=== PATIENT | female | born 1950 | race Caucasian/White ===

== ENCOUNTER 2016-07-22 18:56 | Emergency (ER) | payer MEDICARE ==
[2016-07-22 20:04] VITALS: TEMP 98.3
--- NOTE | 2016-07-22 20:57 | DIRPT ---
CLINICAL DATA: Acute lower back pain after fall today. EXAM: LUMBAR SPINE - COMPLETE 4+ VIEW COMPARISON: None. FINDINGS: Mild dextroscoliosis of lumbar spine is noted. Disc spaces and posterior facet joints appear intact. No fracture or significant spondylolisthesis is noted. IMPRESSION: No significant abnormality seen in the lumbar spine. Electronically Signed By: Christos Law Jr, M.D. On: 07/22/2016 20:54
--- NOTE | 2016-07-22 20:58 | DIRPT ---
CLINICAL DATA: 66-year-old female with history of trauma from a fall on a piece of ice, with injury to the right wrist complaining of right wrist pain. EXAM: RIGHT WRIST - COMPLETE 3+ VIEW COMPARISON: No priors. FINDINGS: Four views of the right wrist demonstrate a very subtle lucency through the metaphyseal region on the oblique and scaphoid views, suggesting a nondisplaced fracture in this region. On the lateral projection, there is also a small displaced cortical fragment posteriorly to the distal radius. Distal ulna appears intact. Carpals appear intact, however, there is widening of the scapholunate interval. IMPRESSION: 1. Nondisplaced fracture through the distal radial metaphysis, with subtle nondisplaced avulsion fracture of the dorsal aspect of the distal radius. 2. Widening of the scapholunate interval suggesting scapholunate ligament injury. Whether or not this is acute or chronic is uncertain on today's examination, as there are no prior studies to compare with. Electronically Signed By: Dio Travis M.D. On: 07/22/2016 20:55
--- NOTE | 2016-07-22 20:59 | DIRPT ---
CLINICAL DATA: Slip and fall on ice, landing on low back and sacrum, now with sacrococcygeal back pain. EXAM: SACRUM AND COCCYX - 2+ VIEW COMPARISON: None. FINDINGS: There is no evidence of fracture or other focal bone lesions. The sacral ala are maintained. Sacroiliac joints appear normal. IMPRESSION: Negative radiographs of the sacrum and coccyx. Electronically Signed By: Florencia Powell M.D. On: 07/22/2016 20:56
[2016-07-22 21:38] VITALS: BP 151/71; PULSE 77; BMI 24.0
--- NOTE | 2016-07-22 21:46 | EDPRACDOC ---
- General Chief Complaint: Fall Stated Complaint: FALL Time Seen by Provider: 07/22/16 21:39 Information Source: Patient - History of Present Illness Onset: 1300 HPI: PT STATES SHE SLIPPED ON THE ICE TODAY, FELL BACKWARDS, COMPLAINS OF PAIN IN LOWER BACK, TAILBONE AND RIGHT WRIST, NO LOC, NO NECK PAIN, TOOK ALEVE WITH SOME RELIEF. Pain Severity: Reports: Mild Injuries/Pain Location: Reports: upper extremity, back Reason for Fall: Reports: slipped Loss of Consciousness: no loss of consciousness Modifying Factors: improves with: movement Associated Symptoms (Fall): Denies: abdominal pain, chest pain, confusion, dizziness, headache, lightheadedness, muscle spasms, nausea/vomiting, neck pain , ringing in ears, seizures, shortness of breath, slurred speech, trouble walking, vision changes Allergies/Adverse Reactions: Allergies Penicillins Allergy (Verified 07/22/16 20:04) Edema-Oral/Lip pneumococcal vaccine Allergy (Verified 07/22/16 20:04) Rash-Localized Home Medications: Ambulatory Orders Cyclobenzaprine HCl [Flexeril] 10 mg PO TID PRN #20 tablet 01/25/15 Hydrocodone Bit/Acetaminophen [Hydrocodon-Acetaminophen 5-325] 1 tab PO Q6 PRN # 20 tab 01/25/15 L.acidoph & Paracasei,B.lactis [Probiotic] 1 each PO DAILY 01/25/15 Loratadine [Claritin] 10 mg PO DAILY PRN 01/25/15 Hydrocodone Bit/Acetaminophen [Hydrocodon-Acetaminophen 5-325] 1 tab PO Q6 PRN # 20 tab 07/22/16 ED Past Medical History - History Reviewed Yes Nurses notes reviewed and agree except as marked - Patient Medical History Cardiac History: Reports: Hypertension Additional Past Medical History: Hypoglycemia - Social Medical History Smoking Status: Never smoker EDM Review of Systems - Review of Systems Neurological: negative: Dizziness, Numbness, Weakness Musculoskeletal: Back, Wrist Integumentary: No Symptoms Reported - Physical Exam Constitutional: Alert (Awake), No apparent distress Oriented to: Time, Person, Place Last recorded Vital Signs: Last Vital Signs Temp 98.3 F 07/22/16 21:37 Pulse 77 07/22/16 21:37 Resp 18 07/22/16 21:37 BP 151/71 07/22/16 21:37 Pulse Ox 97 07/22/16 21:37 Oxygen Pulse Oxygen Saturation 97 O2 Device Room Air Oxygen Flow Rate Fraction of Inspired Oxygen ( FIO2) - HEENT Head: Normal ( normocephalic) Eye Exam: Normal (PERRL, EOMI, Sclera white) Oropharynx: Normal (Pharynx:Moist without exudate,Gums-no swelling) Tympanic Membrane: Normal ENT EAC: Normal TMJ: Normal Nose: No Symptoms Reported (septum midline) Neck: negative: Midline, Paraspinal Tenderness - Respiratory/Cardiovascular Respiratory: Normal - CTA (BBS clear to auscultation without adventitious sounds ) Cardiovascular: Normal (RRR without murmur, gallop or rub) - Musculoskeletal Back: negative: Thoracic Step-off, Lumbar Step-off, Thoracic TTP, Lumbar TTP Extremities: Normal Musculoskeletal Comment: RIGHT WRIST: TENDER DISTAL RADIUS, NO SWELLING OR DEFORMITY, FROM BUT WITH PAIN RIGHT ELBOW: FROM, NONTENDER, NO SWELLING OR DEFORMITY - Integumentary Skin: Normal, Warm, Dry Lymphatics: Normal (no adenopathy) - Neurologic Memory Impaired: Normal Motor Function: Normal (Normal tone, Pulses 2+ No cyanosis or edema, FROM) Cranial Nerve: Normal (CN II-X11 intact sensation, strength 5/5) Cerebellar: Normal Mood Description: Normal Perception: Normal ED Injury/Fall Exam - Physical Exam Head Injury: no evidence of injury Extremity Exam: pelvis stable Skin: Normal, Warm, Dry - Herminio Coma Score Best Eye Response (Mcfall): (4) open spontaneously Best Verbal Response (Mcfall): (5) oriented Best Motor Response (Mcfall): (6) obeys commands Herminio Total: 15 ED Procedures - Splinting 1st splint Location: RIGHT WRIST Hand-Made Type: orthoglass Splint: volar Pre-Proc Neuro Vasc Exam: normal Post-Proc Neuro Vasc Exam: normal Other Devices: Sling - Differential Diagnosis Contusion, Fall, Sprain - Diagnostic Imaging RIGHT WRIST Image interpreted by: Radiologist RIGHT WRIST - COMPLETE 3+ VIEW COMPARISON: No priors. FINDINGS: Four views of the right wrist demonstrate a very subtle lucency through the metaphyseal region on the oblique and scaphoid views, suggesting a nondisplaced fracture in this region. On the lateral projection, there is also a small displaced cortical fragment posteriorly to the distal radius. Distal ulna appears intact. Carpals appear intact, however, there is widening of the scapholunate interval. IMPRESSION: 1. Nondisplaced fracture through the distal radial metaphysis, with subtle nondisplaced avulsion fracture of the dorsal aspect of the distal radius. 2. Widening of the scapholunate interval suggesting scapholunate ligament injury. Whether or not this is acute or chronic is uncertain on today's examination, as there are no prior studies to compare with. L-S SPINE Image interpreted by: Radiologist LUMBAR SPINE - COMPLETE 4+ VIEW COMPARISON: None. FINDINGS: Mild dextroscoliosis of lumbar spine is noted. Disc spaces and posterior facet joints appear intact. No fracture or significant spondylolisthesis is noted. IMPRESSION: No significant abnormality seen in the lumbar spine. SACRUM AND COCCYX Image interpreted by: Radiologist SACRUM AND COCCYX - 2+ VIEW COMPARISON: None. FINDINGS: There is no evidence of fracture or other focal bone lesions. The sacral ala are maintained. Sacroiliac joints appear normal. IMPRESSION: Negative radiographs of the sacrum and coccyx. Decision Time to Discharge: 21:55 - Departure Disposition: Home Condition: Stable Final Diagnosis: Closed fracture of right distal radius Qualifiers: Encounter type: initial encounter Fracture morphology: unspecified fracture morphology Qualified Code(s): S52.501A - Unspecified fracture of the lower end of right radius, initial encounter for closed fracture Instructions: RICE: Routine Care for Injuries, Wrist Injury (ED) Education/Counseling Given To: Patient Education/Counseling Given Regarding: Diagnosis, Treatment, Prognosis, Follow Up Referrals: Armani Waite MD [Staff Physician] - One Week Prescriptions: Hydrocodone Bit/Acetaminophen [Hydrocodon-Acetaminophen 5-325] 1 tab PO Q6 PRN # 20 tab PRN Reason: Pain Forms: Excuse Note Additional Instructions: WEAR SPLINT AND SLING, APPLY COLD COMPRESSES AND ELEVATE YOUR WRIST NEEDED FOR PAIN AND SWELLING.
[2016-07-22] MEDS ORDERED: HYDROCODONE 5 MG/ACETAMIN 325 MG TAB PO ONE (21:48)
== END 2016-07-22 22:03 | disposition home or self-care (01) ==
LOC: EDMC 18:56
DX: S52.501A Unspecified fracture of the lower end of right radius, initial encounter for closed fracture (principal); W00.0XXA Fall on same level due to ice and snow, initial encounter; I10 Essential (primary) hypertension; Z79.899 Other long term (current) drug therapy
CPT/HCPCS: 29125; 72110; 72220; 73110; 99283; A9270; J3490